=== PATIENT | female | born 1950 | race Caucasian/White ===

== ENCOUNTER 2020-06-03 13:47 | Inpatient (IN) | payer MEDICARE ==
[~2020-06-03] VITALS: Ht 157.5 cm; Wt 112.5 kg
[~2020-06-03 13:47] MED LIST: AMLO-150 PO; ASPI-515 PO; ATOR40TA78 PO; BACL-19 PO; CLOP75TA PO; HYDR12.517 PO; INSU100I11 SQ-INSULIN; INSU100I13 SQ-INSULIN; LIDO700A20 TD; LISI-170 PO; METF500T PO; METO25TA91 PO; ROPI0.25 PO
[2020-06-03] MEDS ORDERED: SODIUM CHLORIDE FLUSH 10ML SYR IVF ONE (14:00)
--- NOTE | 2020-06-03 14:05 | NUR ---
PT PROVIDED W/ 90 ML OF WATER. STARTED COUGHING AFTER FIRST SIP. UPDATED.
[2020-06-03 14:21] LABS: BASOPHILS # (AUTO) 0.04 x10^3/uL (0-0.1); BASOPHILS % (AUTO) 0 % (0-1); EOSINOPHILS # (AUTO) 0.23 x10^3/uL (0-0.4); EOSINOPHILS % (AUTO) 3 % (1-7); LYMPHOCYTES # (AUTO) 1.34 x10^3/uL (1-3.4); LYMPHOCYTES % (AUTO) 15 % (22-44); MD NO; MEAN CORPUSCULAR HGB CONC 32.6 g/dL (32.4-35.8); MEAN PLATELET VOLUME 7.7 fL (7.4-10.4); MONOCYTES # (AUTO) 0.56 x10^3/uL (0.2-0.8); MONOCYTES % (AUTO) 6 % (2-9); NEUTROPHILS # (AUTO) 6.67 x10^3/uL (1.8-6.8); NEUTROPHILS % (AUTO) 76 % (42-75); PLATELET COUNT 457 x10^3/uL (130-400); RED BLOOD COUNT 5.36 x10^6/uL (3.82-5.3); RED CELL DISTRIBUTION WIDTH 15.7 % (9.6-15.2)
--- NOTE | 2020-06-03 14:26 | NUR ---
THIS IS A 69 YO F BIB EMS FROM [facility] W/ C/O ALTERATION IN SPEECH PATTERN AND COMPREHENDING BEGINING WITHIN THE PAST 1-2 HOURS. PT HAD STROKE ON 05/10 RESULTING IN LT SIDED DEFICITS. PER EMS, PT RECEIVED MELATONIN LAST NIGHT AND WAS UNAROUSABLE FOR STAFF TO RECEIVE A BASELINE MENTATION. PT WAS DIFFICULT TO ARROUSE THIS MORNING. PT HAS DIFFICULTY EXPRESSING WORDS. SPEECH IS CLEAR. PT IS ORIENTED TO SELF, TIME AND PLACE. DIFFICULT TO ASSESS IF PT IS ORIENTED TO SITUATION. PT IS ABLE TO ANSWER QUESTIONS APPROPRIATELY. WHEN GIVEN A CUP OF WATER PT TRIED TO GRAB THIS RNS HAND INSTEAD OF CUP. PT ABLE TO PERFORM SIMPLE MATH AND IS FOLLOWING COMMANDS. PT EXPERIENCING INTERMITTENT EPISODES OF CONFUSION. PT RESTING ON GURNEY W/ SIDE RAILS UPX2. CALL LIGHTI N REACH, CONNECTED TO ALL MONITORING. HYPERTENSIVE, OTHER VS WDL.
[2020-06-03 14:31] LABS: ALBUMIN 3.5 g/dL (3.4-5.0); ANION GAP 10 mmol/L (5-15); CALCIUM 9.4 mg/dL (8.5-10.1); CHLORIDE 108 mmol/L (98-107); CREATININE 2.63 mg/dL (0.55-1.02); INTERNATIONAL NORMALIZED RATIO 1.06 (0.93-1.1); PROTHROMBIN TIME 10.9 Seconds (9.6-11.5)
--- NOTE | 2020-06-03 14:34 | NUR ---
PT RETURNED FROM CT.
[2020-06-03] MEDS ORDERED: SODIUM CHLORIDE 0.9% 1,000ML IVBOLUS ONE (15:00)
--- NOTE | 2020-06-03 15:03 | NUR ---
TASK RN: PT RESTING IN GURNEY, AWAKE/ALERT AND CONVERSING EASILY. PT REQUESTING PO FLUIDS FOR DEHYDRATION, LIPS/TONGUE DRY. IVF HUNG PER ORDER. BP/SPO2/ECG MONITORING IN PLACE. NSR ON MONITOR. CT RESULTED, CHART UP FOR RECHECK
--- NOTE | 2020-06-03 15:17 | NUR ---
TASK RN: MICHELLE MAYO, UPDATED TO PATIENT STATUS WHICH WAS OKAY WITH PT. SON UPDATED TO POC (ADMIT) MICHELLE: [phone]
[2020-06-03] MEDS ORDERED: MELA3TAB31 PO (15:37)
[2020-06-03] MEDS ORDERED: INSU100V11 SC (15:37)
--- NOTE | 2020-06-03 16:02 | NUR ---
PT RESTING ON GURNEY W/ CALL LIGHT IN REACH, SIDE RAILS UPX2. AWAKE AND ALERT. VSS, NADN. DENIES FURTHER NEEDS AT THIS TIME. AWAITING ADMIT.
--- NOTE | 2020-06-03 16:08 | NUR ---
PT PROVIDED W/ MOUTH SWAB FOR DRY MOUTH.
--- NOTE | 2020-06-03 16:53 | NUR ---
RECEIVED TELEPHONE CALL FROM PTS SON MICHELLE UPDATING HIM ON POC.
[2020-06-03] MEDS ORDERED: ONDANSETRON 2MG/ML, 2ML IVPush PRN (17:00)
[2020-06-03] MEDS ORDERED: LIDODERM 5% PATCH TD PRN (17:00)
[2020-06-03] MEDS ORDERED: hydrALAzine 20 MG/ML, 1ML IVPush PRN (17:00)
[2020-06-03] MEDS ORDERED: ACETAMINOPHEN 325 MG TABLET PO PRN (17:00)
[2020-06-03] MEDS ORDERED: HEPARIN 5,000 UNITS/ML, 1ML ONE (17:13)
[2020-06-03] MEDS ORDERED: hydrALAzine 20 MG/ML, 1ML ONE (17:27)
[2020-06-03] MEDS: SODIUM CHLORIDE 0.9% 1,000 ML IV SCH (17:28)
[2020-06-03] MEDS: HEPARIN 5,000 UNITS/ML, 1ML SQ SCH (17:33)
--- NOTE | 2020-06-03 17:49 | NUR ---
ATTEMPT TO CALL REPORT. RN UNAVAILABLE.
[2020-06-03 18:30] VITALS: BP 181/88
[2020-06-03 19:20] VITALS: BP 158/80
[2020-06-03] MEDS: MELATONIN 3 MG TABLET PO PRN (20:30)
[2020-06-03] MEDS: ATORVASTATIN 40 MG TABLET PO SCH (20:30)
[2020-06-03] MEDS: BACLOFEN 10 MG TABLET PO SCH (20:30)
[2020-06-03] MEDS: ROPINIROLE 0.25MG TABLET PO SCH (20:30)
[2020-06-03] MEDS: INSULIN LISPRO 100 UNITS/ML, PEN SQ-INSULIN SCH (20:32)
[2020-06-03] MEDS: INSULIN GLARGINE 100 UNITS/ML, PEN SQ-INSULIN SCH (20:50)
[2020-06-04 00:04] VITALS: BP 115/56
[2020-06-04 03:42] LABS: BASOPHILS # (AUTO) 0.04 x10^3/uL (0-0.1); BASOPHILS % (AUTO) 1 % (0-1); EOSINOPHILS % (AUTO) 5 % (1-7); LYMPHOCYTES # (AUTO) 1.69 x10^3/uL (1-3.4); LYMPHOCYTES % (AUTO) 21 % (22-44); MD NO; MEAN CORPUSCULAR HEMOGLOBIN 27.8 pg (27.0-34.8); MEAN CORPUSCULAR HGB CONC 31.8 g/dL (32.4-35.8); MEAN CORPUSCULAR VOLUME 87.3 fL (80-100); MEAN PLATELET VOLUME 7.7 fL (7.4-10.4); MONOCYTES # (AUTO) 0.77 x10^3/uL (0.2-0.8); MONOCYTES % (AUTO) 10 % (2-9); NEUTROPHILS # (AUTO) 5.03 x10^3/uL (1.8-6.8); NEUTROPHILS % (AUTO) 64 % (42-75); PLATELET COUNT 413 x10^3/uL (130-400); RED BLOOD COUNT 4.99 x10^6/uL (3.82-5.3)
[2020-06-04 03:51] LABS: ANION GAP 9 mmol/L (5-15); CHLORIDE 112 mmol/L (98-107); CREATININE 2.03 mg/dL (0.55-1.02)
[2020-06-04] MEDS: HEPARIN 5,000 UNITS/ML, 1ML SQ SCH ×2 (04:52→18:02)
[2020-06-04] MEDS: SODIUM CHLORIDE 0.9% 1,000 ML IV SCH ×2 (04:53→18:01)
[2020-06-04] MEDS: INSULIN LISPRO 100 UNITS/ML, PEN SQ-INSULIN SCH ×4 (07:00→19:50)
[2020-06-04 07:05] VITALS: BP 152/74
[2020-06-04] MEDS: ASPIRIN 81 MG TABLET EC PO SCH (09:23)
[2020-06-04] MEDS: METOPROLOL SUCCINATE 25 MG TAB.ER.24H PO SCH (09:23)
[2020-06-04] MEDS: ROPINIROLE 0.25MG TABLET PO SCH ×3 (09:23→20:22)
[2020-06-04] MEDS: BACLOFEN 10 MG TABLET PO SCH ×3 (09:23→20:22)
[2020-06-04] MEDS: AMLODIPINE 5 MG TABLET PO SCH (09:23)
[2020-06-04] MEDS: CLOPIDOGREL 75 MG TABLET PO SCH (09:23)
[2020-06-04] MEDS: SENNA/DOCUSATE TABLET PO SCH (09:24)
[2020-06-04] MEDS: LIDODERM 5% PATCH TD SCH (12:13)
[2020-06-04 14:09] VITALS: BP 156/83
[2020-06-04 18:00] VITALS: BP 103/66
[2020-06-04 18:31] VITALS: BP 137/85
[2020-06-04] MEDS: ATORVASTATIN 40 MG TABLET PO SCH (20:21)
[2020-06-04] MEDS: INSULIN GLARGINE 100 UNITS/ML, PEN SQ-INSULIN SCH (20:21)
[2020-06-04] MEDS: MELATONIN 3 MG TABLET PO PRN (20:22)
[2020-06-05 00:48] VITALS: BP 146/83
[2020-06-05] MEDS: SODIUM CHLORIDE 0.9% 1,000 ML IV SCH (03:08)
[2020-06-05] MEDS: HEPARIN 5,000 UNITS/ML, 1ML SQ SCH (04:50)
[2020-06-05 05:09] LABS: ANION GAP 7 mmol/L (5-15); CALCIUM 9.1 mg/dL (8.5-10.1); CHLORIDE 115 mmol/L (98-107); CREATININE 1.32 mg/dL (0.55-1.02)
[2020-06-05] MEDS: INSULIN LISPRO 100 UNITS/ML, PEN SQ-INSULIN SCH ×2 (07:00→11:00)
[2020-06-05 07:54] VITALS: BP 144/84
[2020-06-05] MEDS: LIDODERM 5% PATCH TD SCH (08:34)
[2020-06-05] MEDS: BACLOFEN 10 MG TABLET PO SCH (08:35)
[2020-06-05] MEDS: ASPIRIN 81 MG TABLET EC PO SCH (08:35)
[2020-06-05] MEDS: ROPINIROLE 0.25MG TABLET PO SCH (08:35)
[2020-06-05] MEDS: AMLODIPINE 5 MG TABLET PO SCH (08:35)
[2020-06-05] MEDS: METOPROLOL SUCCINATE 25 MG TAB.ER.24H PO SCH (08:35)
[2020-06-05] MEDS: CLOPIDOGREL 75 MG TABLET PO SCH (08:35)
[2020-06-05] MEDS: SENNA/DOCUSATE TABLET PO SCH (08:36)
[2020-06-05] MEDS ORDERED: HYDR-3342 PO (12:06)
[2020-06-05] MEDS ORDERED: CLON0.1T22 PO (12:06)
[2020-06-05] MEDS ORDERED: AMLO-150 PO (12:06)
[2020-06-05 12:26] VITALS: BP 129/82
[2020-06-05] MEDS ORDERED: SODIUM CHLORIDE 0.9% 1,000 ML IV SCH (16:37)
== END 2020-06-05 16:28 | DRG 304 ==
LOC: SUATTDRO 15:48 → ED 16:21 → EDIP 16:55 → 4WST 18:11
PROVIDERS: ADMIT Internal Medicine Infectious Disease; ATTEND Hospitalist
DX: I16.1 Hypertensive emergency (principal); N17.0 Acute kidney failure with tubular necrosis; I69.354 Hemiplegia and hemiparesis following cerebral infarction affecting left non-dominant side; R47.9 Unspecified speech disturbances; E86.0 Dehydration; E11.9 Type 2 diabetes mellitus without complications; I10 Essential (primary) hypertension; Z79.02 Long term (current) use of antithrombotics/antiplatelets; Z79.4 Long term (current) use of insulin; Z79.82 Long term (current) use of aspirin; Z79.899 Other long term (current) drug therapy; Z80.0 Family history of malignant neoplasm of digestive organs
CPT/HCPCS: 36415; 70450; 80048; 82040; 82962; 85025; 85610; 85730; 93005; 96361; 96372; 96374; 99285; G0378; J1644; J0360; J1815; J7030